=== PATIENT | male | born 1945 | race Caucasian/White ===

== ENCOUNTER 2017-03-31 08:23 | Emergency (ER) | payer OTHER, BC ==
[2017-03-31 08:29] VITALS: BP 143/78; PULSE 73; TEMP 98.3; BMI 29.8
--- NOTE | 2017-03-31 08:43 | PDOC ---
Suture Removal/Wound Check HPI - History of Present Illness Chief Complaint: Suture/Staple Removal (other) Stated Complaint: suture removal Time Seen by Provider: 03/31/17 08:32 History Source: Yes: Patient Exam Limitations: Yes: No Limitations Treated at: Other ED Date of Last ED visit: 03/22/17 - Previous ED Treatment Type of procedure performed on last visit: Yes: Laceration Repair Tetanus Immunization: Yes: Other comment (he is not sure - he will ask his PMD) Antibiotics Prescribed: No - Onset of Previous Treatment Date of Occurence: 03/22/17 Past History - Past Medical History Allergies/Adverse Reactions: Allergies Allergy/AdvReac Type Severity Reaction Status Date / Time No Known Allergies Allergy Verified 03/31/17 08:24 Home Medications: Ambulatory Orders Nadolol 40 mg PO BID 10/28/12 Olmesartan/Hydrochlorothiazide [Benicar Hct 40-12.5 mg Tablet] 1 each PO DAILY 10/28/12 Simvastatin [Zocor -] 40 mg PO HS 10/28/12 Divalproex [Depakote -] 500 mg PO BID 06/07/13 Cholecalciferol (Vitamin D3) [Vitamin D3] 400 unit PO BID 09/23/13 Ferrous Sulfate [Feosol] 325 mg PO BID 09/23/13 Docusate Sodium [Colace -] 100 mg PO TID #90 capsule 09/25/13 Oxycodone HCl/Acetaminophen [Percocet 5-325 mg Tablet] 1 tab PO Q4H PRN #20 tablet 09/25/13 Apixaban [Eliquis -] 5 mg PO BID #0 tablet 10/10/13 Pantoprazole Sodium [Protonix -] 40 mg PO DAILY #0 tablet.ec 10/10/13 Zolpidem Tartrate [Ambien] 5 mg PO HS #0 tablet 10/10/13 Anemia: No Asthma: No Cancer: No Cardiac Disorders: Yes CVA: No COPD: No CHF: No DVT: No Dementia: No Diabetes: No GI Disorders: Yes (DIVERTICULOSIS,ABDOMINAL PAIN) Disorders: No HTN: Yes Hypercholesterolemia: Yes Liver Disease: No Seizures: No Thyroid Disease: No - Surgical History Abdominal Surgery: Yes (BILATERAL INGUINAL HERNIA) Appendectomy: No Cardiac Surgery: Yes (CARDIAC STENTS X4) Cholecystectomy: No GI Surgery: Yes (DOUBLE HERNIA REPAIR SEPTEMBER 2013) Lung Surgery: No Neurologic Surgery: No Orthopedic Surgery: No - Suicide/Smoking/Psychosocial Hx Smoking Status: No Smoking History: Never smoked Have you smoked in the past 12 months: No Number of Cigarettes Smoked Daily: 0 Hx Alcohol Use: No Drug/Substance Use Hx: No Substance Use Type: None Hx Substance Use Treatment: No Suture Removal/Wound Check PE - Physical Exam Laceration/Wound Check Symptoms: reports: Pain Current Severity Level: None Pain Localization: None Location of Laceration/Wound: bilateral: Head *Review of Systems - Review of Systems Constitutional: No: Fever, Loss of Appetite, Malaise HEENTM: No: Blurred Vision, Double Vision Medical Decision Making - Medical Decision Making 03/31/17 08:49 wounds healing well 18 sutures removed over 2 lacs on his posterior scalp no signs of infection pt unclear if he got a tetanus shot at [facility] or with PMD - recommended tetenus but he prefers to fu with his PMD to verify if he has had it yet *DC/Admit/Observation/Transfer Diagnosis at time of Disposition: Visit for suture removal - Discharge Dispostion Disposition: HOME Condition at time of disposition: Improved Admit: No - Referrals Referrals: Jd Ruiz MD [Staff Physician] - - Patient Instructions Printed Discharge Instructions: DI for Suture Removal Additional Instructions: Wear a hat and use sunscreen on your wound. WAsh gently with soap and water. Follow up [facility] Dr. Ruiz to see if you have your tetanus in the past 10 years , if not, have it updated. Print Language: [place] - Post Discharge Activity
== END 2017-03-31 08:50 | disposition home or self-care (01) ==
LOC: FER 08:23
DX: Z48.02 Encounter for removal of sutures (principal)
CPT/HCPCS: 99281-25

== ENCOUNTER 2018-02-04 11:58 | Inpatient (IN) | payer OTHER, BC ==
--- NOTE | 2018-02-04 15:55 | CON.CARD ---
Consult Consult Specialty:: Cardiology Referred by:: Jd Ruiz MD Reason for Consultation:: Recurrent PAF - History of Present Illness Chief Complaint: Pacemaker notification of PAF recurrence History of Present Illness: 72 yo male h/o CAD s/p PCI(stent), distolic dysfunction, persistent afib [id number] on Eliquis post RFA 07/05/2013, previous cardioversion 11/2017, sick sinus syndrome with syncope post Biotronik MRI conditional pacemaker 2017, HTN cardiomyopathy, mild ao root dilatation 3.9 cm, mild carotid atherosclerosis, lap umbilical hernia repair complicated by abd wall hematoma on Xarelto, home monitoring shows he has been in recurrent asymptomatic persisten atrial fibrillation since 12/22/2017, 81% RV paced, 12% A-Pced during pacer interrogation 01/29/2018 admitted to telemetry for antiarrhythmic therapy initiation. He denies chest pain, dyspnea, near or true syncope, palpitations, orthopnea, PND or LE edema, compliant with medications. - History Source History Provided By: Patient Limitations to Obtaining History: No Limitations - Past Medical History Cardio/Vascular: Yes: AFIB (paroxysmal, s/p ablation), CAD, HTN, Hyperlipdemia Gastrointestinal: Yes: Diverticulosis - Past Surgical History Past Surgical History: Yes: Hernia Repair, Stent - Alcohol/Substance Use Hx Alcohol Use: No - Smoking History Smoking history: Never smoked Have you smoked in the past 12 months: No Aproximately how many cigarettes per day: 0 Home Medications - Allergies Allergies/Adverse Reactions: Allergies Allergy/AdvReac Type Severity Reaction Status Date / Time No Known Allergies Allergy Verified 09/30/17 12:37 - Home Medications Home Medications: Ambulatory Orders Nadolol 40 mg PO DAILY 10/28/12 Olmesartan/Hydrochlorothiazide [Benicar Hct 40-12.5 mg Tablet] 1 each PO DAILY 10/28/12 Divalproex [Depakote -] 500 mg PO TID 06/07/13 Ferrous Sulfate [Feosol] 325 mg PO DAILY 09/23/13 Apixaban [Eliquis -] 5 mg PO BID #0 tablet 10/10/13 [place]-3S/Dha/Epa/Fish Oil [Fish Oil 1,200 mg Softgel] 1 cap PO DAILY 09/30/17 Selegiline HCl 5 mg PO BID 09/30/17 Simvastatin 40 mg PO HS 09/30/17 Ubidecarenone [Co Q-10] 200 mg PO DAILY 02/04/18 Family Disease History - Family Disease History Family History: Denies Review of Systems - Review of Systems Constitutional: reports: No Symptoms Eyes: reports: No Symptoms HENT: reports: No Symptoms Neck: reports: No Symptoms Cardiovascular: reports: No Symptoms Respiratory: reports: No Symptoms Gastrointestinal: reports: No Symptoms Genitourinary: reports: No Symptoms Musculoskeletal: reports: No Symptoms Integumentary: reports: No Symptoms Neurological: reports: No Symptoms Constitutional: Yes: No Distress, Calm, Thin Neck: Yes: Supple Respiratory: Yes: Regular, CTA Bilaterally Gastrointestinal: Yes: Normal Bowel Sounds, Soft Cardiovascular: Yes: Regular Rate and Rhythm JVD: No Carotid Bruit: No Heart Sounds: Yes: S1, S2 Murmur: Yes: Systolic Murmur, Grade 1 Edema: No - Other Data Afib v-paced @ 71 Prior Cardiac Procedures: Cardioversion, PTCA with Stent Problem List - Problems (1) Persistent atrial fibrillation Code(s): I48.1 - PERSISTENT ATRIAL FIBRILLATION (2) Pacemaker Code(s): Z95.0 - PRESENCE OF CARDIAC PACEMAKER (3) Sick sinus syndrome Code(s): I49.5 - SICK SINUS SYNDROME (4) Coronary artery disease Code(s): I25.10 - ATHSCL HEART DISEASE OF [place] CORONARY ARTERY W/O ANG PCTRS Qualifiers: Coronary Disease-Associated Artery/Lesion type: [place] artery [place] vs. transplanted heart: [place] heart Associated angina: without angina Qualified Code(s): I25.10 - Atherosclerotic heart disease of [place] coronary artery without angina pectoris (5) Stented coronary artery Code(s): Z95.5 - PRESENCE OF CORONARY ANGIOPLASTY IMPLANT AND GRAFT (6) Hyperlipidemia Code(s): E78.5 - HYPERLIPIDEMIA, UNSPECIFIED Qualifiers: Hyperlipidemia type: pure hypercholesterolemia Qualified Code(s): E78.00 - Pure hypercholesterolemia, unspecified; E78.0 - Pure hypercholesterolemia (7) Hypertensive cardiovascular disease Code(s): I11.9 - HYPERTENSIVE HEART DISEASE WITHOUT HEART FAILURE Qualifiers: Heart failure presence: without heart failure Qualified Code(s): I11.9 - Hypertensive heart disease without heart failure (8) Diastolic dysfunction without heart failure Code(s): I51.89 - OTHER ILL-DEFINED HEART DISEASES (9) Anticoagulant long-term use Code(s): Z79.01 - HAND PLUG SHAPER (CURRENT) USE OF ANTICOAGULANTS Assessment/Plan [facility] Myoview: August 26, 2017 No ischemia, LVEF 59% Echo: Mar 24, 2017 Normal LV size and fxn LVEF 69%, mild LAE 4.2 cm, mild ao root dilatation 3.8 cm 1. Recurrent asymptomatic persistent atrial fibrillation with h/o previous RFA and cardioversion, [id number] on Eliquis 2. CAD s/p PCI, angina pectoris 3. Diastolic dysfunction 4. Sick sinus syndrome with syncope s/p MRI conditional Biotronik device 5. Mild aortic root dilatation 3.9 cm 6. HTN/HCVD 7. Hyperlipidemiua P:1. Start sotalol 80 bid with check QTC next 2 days, monitor on telemetry, continue Eliquis 5 bid, Benicar 20 qd, zocor 40 qhs 2. Plan for DCCV Friday if remains in afib, JOSE-guidance not indicated in Eliquis compliance is assured. 3. Thank you for consultative opportunity
[2018-02-04] MEDS ORDERED: APIXABAN 5 MG TABLET PO ONE (16:53)
[2018-02-04] MEDS: SOTALOL HCL 80 MG TABLET (FP) PO SCH ×2 (17:53→21:18)
[2018-02-04] MEDS ORDERED: PT OWN MED DRAWER 7, Y5N ONE (20:31)
[2018-02-04 21:03] LABS: BASO % 0.5 % (0-2.0); HEMATOCRIT 33.7 % (35.4-49); HEMOGLOBIN 11.6 GM/dL (11.7-16.9); LYMPH % 29.5 % (8-40); MCH 30.7 pg (25.7-33.7); MCHC 34.4 g/dl (32.0-35.9); MEAN CELL VOLUME 89.1 fl (80-96); MEAN PLT VOLUME 7.2 fl (7.5-11.1); MONO % 11.6 % (3.8-10.2); NEUT % 55.4 % (42.8-82.8); PLATELET COUNT 140 K/MM3 (134-434); RBC 3.78 M/mm3 (4.00-5.60); RDW 16.1 % (11.9-15.9); WHITE BLOOD COUNT 6.9 K/mm3 (4.0-10.0)
[2018-02-04] MEDS: DIVALPROEX SODIUM 500 MG TABLET E.C. PO SCH (21:17)
[2018-02-04] MEDS: ATORVASTATIN CA 40 MG TABLET (FP) PO SCH (21:18)
[2018-02-04] MEDS: APIXABAN 5 MG TABLET PO SCH (21:18)
[2018-02-04 21:22] LABS: INR 1.22 (0.83-1.09); PROTHROMBIN TIME (PATIENT) 14.4 SEC (9.7-13.0)
[2018-02-04 21:25] LABS: ACTIVATED PTT 33.8 SECONDS (25.2-36.5)
[2018-02-04 22:43] LABS: ALBUMIN 3.5 g/dl (3.4-5.0); ALK PHOS 35 U/L (45-117); ANION GAP 7 MMOL/L (8-16); BILIRUBIN,TOTAL 0.5 mg/dL (0.2-1); BLOOD UREA NITROGEN 23 mg/dL (7-18); CALCIUM 8.5 mg/dL (8.5-10.1); CHLORIDE 99 mmol/L (98-107); CO2 29 mmol/L (21-32); CREATININE 1.2 mg/dL (0.55-1.3); GLUCOSE,RANDOM 108 mg/dL (74-106); MAGNESIUM 2.2 mg/dL (1.8-2.4); PHOSPHOROUS 3.3 mg/dL (2.5-4.9); POTASSIUM 4.2 mmol/L (3.5-5.1); SGOT/AST 13 U/L (15-37); SGPT/ALT 20 U/L (13-61); SODIUM 135 mmol/L (136-145); TOT PROT 6.1 g/dl (6.4-8.2)
[2018-02-05] MEDS: DIVALPROEX SODIUM 500 MG TABLET E.C. PO SCH ×3 (05:41→21:31)
[2018-02-05 06:59] LABS: BASO % 0.4 % (0-2.0); EOS % 2.9 % (0-4.5); HEMATOCRIT 32.6 % (35.4-49); HEMOGLOBIN 11.2 GM/dL (11.7-16.9); LYMPH % 30.6 % (8-40); MCH 30.3 pg (25.7-33.7); MCHC 34.2 g/dl (32.0-35.9); MEAN CELL VOLUME 88.8 fl (80-96); MEAN PLT VOLUME 7.1 fl (7.5-11.1); MONO % 13.3 % (3.8-10.2); NEUT % 52.8 % (42.8-82.8); PLATELET COUNT 113 K/MM3 (134-434); RBC 3.68 M/mm3 (4.00-5.60); RDW 15.5 % (11.9-15.9); WHITE BLOOD COUNT 5.6 K/mm3 (4.0-10.0)
[2018-02-05 07:27] LABS: ALBUMIN 3.3 g/dl (3.4-5.0); ALK PHOS 32 U/L (45-117); ANION GAP 7 MMOL/L (8-16); BILIRUBIN,TOTAL 0.6 mg/dL (0.2-1); BLOOD UREA NITROGEN 22 mg/dL (7-18); CALCIUM 8.4 mg/dL (8.5-10.1); CHLORIDE 101 mmol/L (98-107); CHOLESTEROL 83 mg/dL (50-200); CO2 28 mmol/L (21-32); CREATININE 1.1 mg/dL (0.55-1.3); GLUCOSE,RANDOM 88 mg/dL (74-106); HDL CHOLESTEROL 34 mg/dL (40-60); POTASSIUM 4.3 mmol/L (3.5-5.1); SGOT/AST 13 U/L (15-37); SGPT/ALT 17 U/L (13-61); SODIUM 136 mmol/L (136-145); TOT PROT 5.7 g/dl (6.4-8.2); TRIGLYCERIDES 85 mg/dL (0-150)
--- NOTE | 2018-02-05 08:21 | HP ---
Admitting History and Physical - Admission History of Present Illness: 72 yo male h/o CAD s/p PCI(stent), diastolic dysfunction, persistent afib [id number] on Eliquis post RFA 07/05/2013, previous cardioversion 11/2017, sick sinus syndrome with syncope post Biotronik MRI conditional pacemaker 2017, HTN cardiomyopathy, mild ao root dilatation 3.9 cm, mild carotid atherosclerosis, lap umbilical hernia repair complicated by abd wall hematoma on Xarelto, home monitoring shows he has been in recurrent asymptomatic persisten atrial fibrillation since 12/22/2017, 81% RV paced, 12% A-Pced during pacer interrogation 01/29/2018 admitted to telemetry for antiarrhythmic therapy initiation. He denies chest pain, dyspnea, near or true syncope, palpitations, orthopnea, PND or LE edema, compliant with medications. - Past Medical History SHOP ASSISTANT: Yes: Parkinson's Cardiovascular: Yes: AFIB (paroxysmal, s/p ablation), CAD, HTN, Hyperlipdemia Gastrointestinal: Yes: Diverticulosis - Past Surgical History Past Surgical History: Yes: Hernia Repair, Stent - Smoking History Smoking history: Never smoked Have you smoked in the past 12 months: No Aproximately how many cigarettes per day: 0 - Alcohol/Substance Use Hx Alcohol Use: No Home Medications - Allergies Allergies/Adverse Reactions: Allergies Allergy/AdvReac Type Severity Reaction Status Date / Time No Known Allergies Allergy Verified 09/30/17 12:37 - Home Medications Home Medications: Ambulatory Orders Nadolol 40 mg PO DAILY 10/28/12 Olmesartan/Hydrochlorothiazide [Benicar Hct 40-12.5 mg Tablet] 1 each PO DAILY 10/28/12 Divalproex [Depakote -] 500 mg PO TID 06/07/13 Ferrous Sulfate [Feosol] 325 mg PO DAILY 09/23/13 Apixaban [Eliquis -] 5 mg PO BID #0 tablet 10/10/13 [place]-3S/Dha/Epa/Fish Oil [Fish Oil 1,200 mg Softgel] 1 cap PO DAILY 09/30/17 Selegiline HCl 5 mg PO BID 09/30/17 Simvastatin 40 mg PO HS 09/30/17 Ubidecarenone [Co Q-10] 200 mg PO DAILY 02/04/18 Review of Systems - Review of Systems Cardiovascular: reports: Palpitations. denies: Chest Pain, Shortness of Breath Respiratory: denies: SOB Gastrointestinal: reports: No Symptoms Genitourinary: reports: No Symptoms Physical Examination Vital Signs: Vital Signs Temperature 97.8 F 02/05/18 06:00 Pulse Rate 81 02/05/18 06:00 Respiratory Rate 18 02/05/18 06:00 Blood Pressure 133/67 02/05/18 06:00 O2 Sat by Pulse Oximetry (%) 98 02/04/18 17:45 Cardiovascular: Yes: Pulse Irregular, S1, S2 Respiratory: Yes: Regular, CTA Bilaterally Gastrointestinal: Yes: Normal Bowel Sounds, Soft Edema: No Labs: CBC, BMP 02/05/18 06:00 02/05/18 06:00 Problem List - Problems (1) Persistent atrial fibrillation Assessment/Plan: -OBSERVE ON MEDS IF PERSISTENT THEN CARDIOVERSION IN AM ON [employer] TELE CARDIO ON BOARD Code(s): I48.1 - PERSISTENT ATRIAL FIBRILLATION (2) Coronary artery disease Assessment/Plan: -S/P SENTING -NO CP Code(s): I25.10 - ATHSCL HEART DISEASE OF [place] CORONARY ARTERY W/O ANG PCTRS Qualifiers: Coronary Disease-Associated Artery/Lesion type: [place] artery [place] vs. transplanted heart: [place] heart Associated angina: without angina Qualified Code(s): I25.10 - Atherosclerotic heart disease of [place] coronary artery without angina pectoris (3) Diastolic dysfunction without heart failure Assessment/Plan: -STABLE Code(s): I51.89 - OTHER ILL-DEFINED HEART DISEASES (4) Pacemaker Assessment/Plan: -EKG AND TELE Code(s): Z95.0 - PRESENCE OF CARDIAC PACEMAKER (5) Anemia, secondary Assessment/Plan: -ON IRON AT HOME -DUE FOR COLONOSCOPY--SEEN BY GI--WILL DO AFTER CARDIAC ISSUES RESOLVE -MONITOR Code(s): D64.9 - ANEMIA, UNSPECIFIED
[2018-02-05] MEDS: APIXABAN 5 MG TABLET PO SCH ×2 (09:39→21:31)
[2018-02-05] MEDS: SOTALOL HCL 80 MG TABLET (FP) PO SCH ×2 (09:39→21:31)
[2018-02-05] MEDS: VALSARTAN 80 MG TABLET (UD) PO SCH (09:39)
--- NOTE | 2018-02-05 10:01 | PN ---
Progress Note, Physician History of Present Illness: Persistent afib placed on sotalol, denies symptoms. - Current Medication List Current Medications: Active Medications Apixaban (Eliquis -) 5 mg PO BID [facility] Last Admin: 02/05/18 09:39 Dose: 5 mg Atorvastatin Calcium (Lipitor -) 40 mg PO HS [facility] Last Admin: 02/04/18 21:18 Dose: 40 mg Divalproex Sodium (Depakote -) 500 mg PO TID [facility] Last Admin: 02/05/18 05:41 Dose: 500 mg Non-Formulary Medication (Selegiline Hcl [Selegiline Hcl]) 5 mg PO BID [facility] Sotalol HCl (Betapace -) 80 mg PO BID [facility] Last Admin: 02/05/18 09:39 Dose: 80 mg Valsartan (Diovan -) 80 mg PO DAILY [facility] Last Admin: 02/05/18 09:39 Dose: 80 mg - Objective Vital Signs: Vital Signs Temperature 97.4 F L 02/05/18 09:42 Pulse Rate 69 02/05/18 09:42 Respiratory Rate 18 02/05/18 09:42 Blood Pressure 118/69 02/05/18 09:42 O2 Sat by Pulse Oximetry (%) 94 L 02/05/18 09:00 Constitutional: Yes: No Distress, Calm, Thin Neck: Yes: Supple Cardiovascular: Yes: Regular Rate and Rhythm Respiratory: Yes: Regular, CTA Bilaterally Gastrointestinal: Yes: Normal Bowel Sounds, Soft Edema: No Labs: CBC, BMP 02/05/18 06:00 02/05/18 06:00 INR, PTT INR 1.22 (0.83-1.09) H 02/04/18 20:45 - ....Imaging EKG: Report Reviewed (Afib v-paced, no torsades, Qtc 516 msec) Problem List - Problems (1) Persistent atrial fibrillation Code(s): I48.1 - PERSISTENT ATRIAL FIBRILLATION (2) Pacemaker Code(s): Z95.0 - PRESENCE OF CARDIAC PACEMAKER (3) Sick sinus syndrome Code(s): I49.5 - SICK SINUS SYNDROME (4) Coronary artery disease Code(s): I25.10 - ATHSCL HEART DISEASE OF [place] CORONARY ARTERY W/O ANG PCTRS Qualifiers: Coronary Disease-Associated Artery/Lesion type: [place] artery [place] vs. transplanted heart: [place] heart Associated angina: without angina Qualified Code(s): I25.10 - Atherosclerotic heart disease of [place] coronary artery without angina pectoris (5) Stented coronary artery Code(s): Z95.5 - PRESENCE OF CORONARY ANGIOPLASTY IMPLANT AND GRAFT (6) Hyperlipidemia Code(s): E78.5 - HYPERLIPIDEMIA, UNSPECIFIED Qualifiers: Hyperlipidemia type: pure hypercholesterolemia Qualified Code(s): E78.00 - Pure hypercholesterolemia, unspecified; E78.0 - Pure hypercholesterolemia (7) Hypertensive cardiovascular disease Code(s): I11.9 - HYPERTENSIVE HEART DISEASE WITHOUT HEART FAILURE Qualifiers: Heart failure presence: without heart failure Qualified Code(s): I11.9 - Hypertensive heart disease without heart failure (8) Diastolic dysfunction without heart failure Code(s): I51.89 - OTHER ILL-DEFINED HEART DISEASES (9) Anticoagulant long-term use Code(s): Z79.01 - PEDODONTIST (CURRENT) USE OF ANTICOAGULANTS Assessment/Plan [facility] Myoview: August 26, 2017 No ischemia, LVEF 59% Echo: Mar 24, 2017 Normal LV size and fxn LVEF 69%, mild LAE 4.2 cm, mild ao root dilatation 3.8 cm 1. Recurrent asymptomatic persistent atrial fibrillation with h/o previous RFA and cardioversion, [id number] on Eliquis 2. CAD s/p PCI, angina pectoris 3. Diastolic dysfunction 4. Sick sinus syndrome with syncope s/p MRI conditional Biotronik device 5. Mild aortic root dilatation 3.9 cm 6. HTN/HCVD 7. Hyperlipidemiua P:1. Continue sotalol 80 bid with check QTC, monitor on telemetry, continue Eliquis 5 bid, Diovan 80 qd, Lipitor 40 qhs 2. Interrogate pacemaker as outpatient, if persists in afib will plan for DCCV, JOSE-guidance not indicated as Eliquis compliance is assured.
--- NOTE | 2018-02-05 12:17 | EKG ---
Test Reason : Blood Pressure : / mmHG Vent. Rate : 069 BPM Atrial Rate : 340 BPM P-R Int : 000 ms QRS Dur : 190 ms QT Int : 464 ms P-R-T Axes : 000 -64 071 degrees QTc Int : 497 ms Ventricular-paced rhythm ABNORMAL ECG WHEN COMPARED WITH ECG OF 01-OCT-2013 09:10, ELECTRONIC VENTRICULAR PACEMAKER HAS REPLACED SINUS RHYTHM Confirmed by MISHEL ALBA MD ([id number]) on 02/05/2018 12:17:39 PM Referred By: [facility] Confirmed By:MISHEL ALBA MD
[2018-02-05] MEDS ORDERED: PT OWN MED DRAWER 7, Y5N ONE ×2 (13:08→21:22)
[2018-02-05] MEDS: ATORVASTATIN CA 40 MG TABLET (FP) PO SCH (21:31)
[2018-02-05] MEDS: SELEGILINE PO SCH (21:36)
[2018-02-06] MEDS ORDERED: PT OWN MED DRAWER 7, Y5N ONE ×2 (06:32→13:14)
[2018-02-06] MEDS: DIVALPROEX SODIUM 500 MG TABLET E.C. PO SCH ×2 (06:36→13:15)
--- NOTE | 2018-02-06 07:22 | EKG ---
Test Reason : Blood Pressure : / mmHG Vent. Rate : 069 BPM Atrial Rate : 070 BPM P-R Int : 000 ms QRS Dur : 194 ms QT Int : 482 ms P-R-T Axes : 000 -66 081 degrees QTc Int : 516 ms Ventricular-paced rhythm ABNORMAL ECG WHEN COMPARED WITH ECG OF 04-FEB-2018 16:48, NO SIGNIFICANT CHANGE WAS FOUND Confirmed by MISHEL ALBA MD ([id number]) on 02/05/2018 12:15:44 PM Referred By: Confirmed By:MISHEL ALBA MD
--- NOTE | 2018-02-06 07:31 | PN ---
Progress Note, Physician - Current Medication List Current Medications: Active Medications Apixaban (Eliquis -) 5 mg PO BID [facility] Last Admin: 02/05/18 21:31 Dose: 5 mg Atorvastatin Calcium (Lipitor -) 40 mg PO HS [facility] Last Admin: 02/05/18 21:31 Dose: 40 mg Divalproex Sodium (Depakote -) 500 mg PO TID [facility] Last Admin: 02/06/18 06:36 Dose: 500 mg Ptnt's Own Med ( (Selegiline Hcl 5 Mg)) 5 mg PO BID [facility] Last Admin: 02/05/18 21:36 Dose: 5 mg Sotalol HCl (Betapace -) 80 mg PO BID [facility] Last Admin: 02/05/18 21:31 Dose: 80 mg Valsartan (Diovan -) 80 mg PO DAILY [facility] Last Admin: 02/05/18 09:39 Dose: 80 mg - Objective Vital Signs: Vital Signs Temperature 97.1 F L 02/06/18 06:00 Pulse Rate 69 02/06/18 06:00 Respiratory Rate 17 02/06/18 06:00 Blood Pressure 100/65 02/06/18 06:00 O2 Sat by Pulse Oximetry (%) 95 02/05/18 20:24 Cardiovascular: Yes: S1, S2 Respiratory: Yes: Regular, CTA Bilaterally Gastrointestinal: Yes: Normal Bowel Sounds, Soft Labs: CBC, BMP 02/05/18 06:00 02/05/18 06:00 INR, PTT INR 1.22 (0.83-1.09) H 02/04/18 20:45 Problem List - Problems (1) Persistent atrial fibrillation Assessment/Plan: -OBSERVE ON MEDS IF PERSISTENT THEN CARDIOVERSION PER CARDIO ON [employer] TELE CARDIO ON BOARD Code(s): I48.1 - PERSISTENT ATRIAL FIBRILLATION (2) Coronary artery disease Assessment/Plan: -S/P SENTING -NO CP Code(s): I25.10 - ATHSCL HEART DISEASE OF [place] CORONARY ARTERY W/O ANG PCTRS Qualifiers: Coronary Disease-Associated Artery/Lesion type: [place] artery [place] vs. transplanted heart: [place] heart Associated angina: without angina Qualified Code(s): I25.10 - Atherosclerotic heart disease of [place] coronary artery without angina pectoris (3) Diastolic dysfunction without heart failure Assessment/Plan: -STABLE Code(s): I51.89 - OTHER ILL-DEFINED HEART DISEASES (4) Pacemaker Assessment/Plan: -EKG AND TELE -INTERROGATION OUTPATIENT Code(s): Z95.0 - PRESENCE OF CARDIAC PACEMAKER (5) Anemia, secondary Assessment/Plan: -ON IRON AT HOME -DUE FOR COLONOSCOPY--SEEN BY GI--WILL DO AFTER CARDIAC ISSUES RESOLVE -MONITOR Laboratory Tests 02/05/18 02/05/18 06:00 06:00 Hgb 11.2 L Ferritin 665.9 H SERUM IRON PENDING Code(s): D64.9 - ANEMIA, UNSPECIFIED
[2018-02-06] MEDS: APIXABAN 5 MG TABLET PO SCH (10:13)
[2018-02-06] MEDS: SELEGILINE PO SCH (10:13)
[2018-02-06] MEDS: SOTALOL HCL 80 MG TABLET (FP) PO SCH (10:13)
[2018-02-06] MEDS: VALSARTAN 80 MG TABLET (UD) PO SCH (10:13)
[2018-02-06 10:41] VITALS: TEMP 97.7
--- NOTE | 2018-02-06 11:06 | CONSULT ---
Consultation: REQUESTING PROVIDER: Jasmyne CONSULT REQUEST: We have been asked to medically evaluate this patient for pulmonology evaluation for JOSEPH. HISTORY OF PRESENT ILLNESS: 72 yo male with PMH CAD s/p stent, Diastolic dysfunction, persistent A-fib (s/p ablation 2013, cardioversion 11/2017), admitted for antiarrhythmic therapy vs cardioversion following abnormal pacemaker interrogation. Pt states that he has not had any symptoms at all and has tolerated hard manual work without any chest pain, palpitations, SOB, JOSEPH, lightheadedness or dizziness. He states that he follows up yearly for post 12/23 check-ups. His most recent PFTs were in december and were normal as per the patient. REVIEW OF SYSTEMS: CONSTITUTIONAL: Absent: fever, chills, diaphoresis, generalized weakness, malaise, loss of appetite, weight change HEENT: Absent: rhinorrhea, nasal congestion, throat pain, throat swelling, difficulty swallowing, mouth swelling, ear pain, eye pain, visual changes CARDIOVASCULAR: Absent: chest pain, syncope, palpitations, irregular heart rate, lightheadedness , peripheral edema RESPIRATORY: Absent: cough, shortness of breath, dyspnea with exertion, orthopnea, wheezing, stridor, hemoptysis GASTROINTESTINAL: Absent: abdominal pain, abdominal distension, nausea, vomiting, diarrhea, constipation, melena, hematochezia GENITOURINARY: Absent: dysuria, frequency, urgency, hesitancy, hematuria, flank pain, genital pain MUSCULOSKELETAL: Absent: myalgia, arthralgia, joint swelling, back pain, neck pain SKIN: Absent: rash, itching, pallor HEMATOLOGIC/IMMUNOLOGIC: Absent: easy bleeding, easy bruising, lymphadenopathy, frequent infections ENDOCRINE: Absent: unexplained weight gain, unexplained weight loss, heat intolerance, cold intolerance NEUROLOGIC: Absent: headache, focal weakness or paresthesias, dizziness, unsteady gait, seizure, mental status changes, bladder or bowel incontinence PSYCHIATRIC: Absent: anxiety, depression, suicidal or homicidal ideation, hallucinations. PHYSICAL EXAMINATION Vital Signs - 24 hr 02/05/18 02/05/18 02/05/18 13:21 18:00 20:24 Temperature 97.9 F 97.5 F L Pulse Rate 69 69 Respiratory 16 18 Rate Blood Pressure 117/61 98/58 L O2 Sat by Pulse 95 Oximetry (%) 02/05/18 02/06/18 02/06/18 20:30 02:00 06:00 Temperature 97.4 F L 97.0 F L 97.1 F L Pulse Rate 70 69 69 Respiratory 18 18 17 Rate Blood Pressure 117/67 108/62 100/65 O2 Sat by Pulse Oximetry (%) 02/06/18 10:36 Temperature 97.7 F Pulse Rate 69 Respiratory 18 Rate Blood Pressure 116/75 O2 Sat by Pulse 97 Oximetry (%) GENERAL: Awake, alert, and fully oriented, in no acute distress. EYES: PERRL, EOMI, no scleral icterus EARS, NOSE, THROAT: oropharynx clear without exudates. Moist mucous membranes. NECK: supple without lymphadenopathy or JVD LUNGS: CTA b/l, no wheezes or rhonchi HEART: Irregularly irregular, regular rate, no murmurs noted ABDOMEN: Soft, nontender, normoactive bowel sounds, EXTREMITIES: 2+ pulses, warm, well-perfused. No calf tenderness. No peripheral edema. Active Medications Generic Name Dose Route Start Last Admin Trade Name Freq PRN Reason Stop Dose Admin Apixaban 5 mg 02/04/18 22:00 02/06/18 10:13 Eliquis - PO 5 mg BID GENNA Administration Atorvastatin Calcium 40 mg 02/04/18 22:00 02/05/18 21:31 Lipitor - PO 40 mg HS GENNA Administration Divalproex Sodium 500 mg 02/04/18 22:00 02/06/18 06:36 Depakote - PO 500 mg TID GENNA Administration Ptnt's Own Med ( 5 mg 02/05/18 22:00 02/06/18 10:13 Selegiline Hcl 5 Mg) PO 5 mg BID GENNA Administration Sotalol HCl 80 mg 02/04/18 15:48 02/06/18 10:13 Betapace - PO 80 mg BID GENNA Administration Valsartan 80 mg 02/05/18 10:00 02/06/18 10:13 Diovan - PO 80 mg DAILY GENNA Administration ASSESSMENT/PLAN: 72 yo male with PMH CAD s/p stent, Diastolic dysfunction, persistent A-fib (s/p ablation 2013, cardioversion 11/2017), admitted for antiarrhythmic therapy vs cardioversion following abnormal pacemaker interrogation. A-fib -Cardiology consult appreciated -Pt likely for Cardioversion today -Ventricular paced rythm on ECG -currently rate controlled with Sotalol 80 mg BID 12/23 worker -Recent PFTs normal in December this year -Continue outpatient follow up with yearly checkups and PFTs DIVINA -Avoid nephrotoxic drugs Anemia -Stable -possibly secondary to chronic inflammation -Iron Studies Pending -B12 noted Prophylaxis -Eliquis 5 mg PO BID FEN -Fluids: none -Electrolytes: monitor and replete as necessary -Nutrition: NPO for possible cardioversion Dispo: We will continue to follow the patient. Thank you for this consultative opportunity. Visit type - Emergency Visit Emergency Visit: Yes ED Registration Date: 02/04/18 Care time: The patient presented to the Emergency Department on the above date and was hospitalized for further evaluation of their emergent condition. - New Patient This patient is new to me today: Yes Date on this admission: 02/06/18 - Critical Care Critical Care patient: No
--- NOTE | 2018-02-06 11:21 | PN ---
Progress Note, Physician History of Present Illness: Persistent afib placed on sotalol, denies symptoms. - Current Medication List Current Medications: Active Medications Apixaban (Eliquis -) 5 mg PO BID [facility] Last Admin: 02/06/18 10:13 Dose: 5 mg Atorvastatin Calcium (Lipitor -) 40 mg PO HS [facility] Last Admin: 02/05/18 21:31 Dose: 40 mg Divalproex Sodium (Depakote -) 500 mg PO TID [facility] Last Admin: 02/06/18 06:36 Dose: 500 mg Ptnt's Own Med ( (Selegiline Hcl 5 Mg)) 5 mg PO BID [facility] Last Admin: 02/06/18 10:13 Dose: 5 mg Sotalol HCl (Betapace -) 80 mg PO BID [facility] Last Admin: 02/06/18 10:13 Dose: 80 mg Valsartan (Diovan -) 80 mg PO DAILY [facility] Last Admin: 02/06/18 10:13 Dose: 80 mg - Objective Vital Signs: Vital Signs Temperature 97.7 F 02/06/18 10:36 Pulse Rate 69 02/06/18 10:36 Respiratory Rate 18 02/06/18 10:36 Blood Pressure 116/75 02/06/18 10:36 O2 Sat by Pulse Oximetry (%) 97 02/06/18 10:36 Constitutional: Yes: No Distress, Calm, Thin Neck: Yes: Supple Cardiovascular: Yes: Regular Rate and Rhythm Respiratory: Yes: Regular, CTA Bilaterally Gastrointestinal: Yes: Soft, Hypoactive Bowel Sounds Edema: No Labs: CBC, BMP 02/05/18 06:00 02/05/18 06:00 INR, PTT INR 1.22 (0.83-1.09) H 02/04/18 20:45 - ....Imaging EKG: Report Reviewed (Afib v-paced @ 69) Problem List - Problems (1) Persistent atrial fibrillation Code(s): I48.1 - PERSISTENT ATRIAL FIBRILLATION (2) Pacemaker Code(s): Z95.0 - PRESENCE OF CARDIAC PACEMAKER (3) Sick sinus syndrome Code(s): I49.5 - SICK SINUS SYNDROME (4) Coronary artery disease Code(s): I25.10 - ATHSCL HEART DISEASE OF [place] CORONARY ARTERY W/O ANG PCTRS Qualifiers: Coronary Disease-Associated Artery/Lesion type: [place] artery [place] vs. transplanted heart: [place] heart Associated angina: without angina Qualified Code(s): I25.10 - Atherosclerotic heart disease of [place] coronary artery without angina pectoris (5) Stented coronary artery Code(s): Z95.5 - PRESENCE OF CORONARY ANGIOPLASTY IMPLANT AND GRAFT (6) Hyperlipidemia Code(s): E78.5 - HYPERLIPIDEMIA, UNSPECIFIED Qualifiers: Hyperlipidemia type: pure hypercholesterolemia Qualified Code(s): E78.00 - Pure hypercholesterolemia, unspecified; E78.0 - Pure hypercholesterolemia (7) Hypertensive cardiovascular disease Code(s): I11.9 - HYPERTENSIVE HEART DISEASE WITHOUT HEART FAILURE Qualifiers: Heart failure presence: without heart failure Qualified Code(s): I11.9 - Hypertensive heart disease without heart failure (8) Diastolic dysfunction without heart failure Code(s): I51.89 - OTHER ILL-DEFINED HEART DISEASES (9) Anticoagulant long-term use Code(s): Z79.01 - [facility] (CURRENT) USE OF ANTICOAGULANTS Assessment/Plan Lexiscan Myoview: August 26, 2017 No ischemia, LVEF 59% Echo: Mar 24, 2017 Normal LV size and fxn LVEF 69%, mild LAE 4.2 cm, mild ao root dilatation 3.8 cm 1. Recurrent asymptomatic persistent atrial fibrillation with h/o previous RFA and cardioversion, [id number] on Eliquis 2. CAD s/p PCI, angina pectoris 3. Diastolic dysfunction 4. Sick sinus syndrome with syncope s/p MRI conditional Biotronik device 5. Mild aortic root dilatation 3.9 cm 6. HTN/HCVD 7. Hyperlipidemiua P:1. Continue sotalol 80 bid with check QTC, monitor on telemetry, continue Eliquis 5 bid, Diovan 80 qd, Lipitor 40 qhs 2. Plan for DCCV today, JOSE-guidance not indicated as Eliquis compliance is assured.
[2018-02-06] MEDS ORDERED: PANTOPRAZOLE SODIUM 40 MG VIAL IVPUSH SCH (12:00)
[2018-02-06] MEDS ORDERED: CLOTRIMAZOLE 10 MG TROCHE (FP) PO SCH (14:00)
--- NOTE | 2018-02-06 14:29 | PN ---
Progress Note (short form) - Note Progress Note: Procedure Note Procedure: DC Cardioversion Diagnosis: Persistent afib on antiarrhythmic agent, sss s/p PPM, chronic a/c Procedure: After informed consent obtained, deep sedation with propofol administered by anesthesia, underwent synchronized cardioversion with 120 J with re-establishment of PAF->sinus rhythm. Recheck 12 lead ECG for confirmation. JOSE-guidance not warranted due to confirmed compliance with Eliquis. Complications: None Problem List - Problems (1) Persistent atrial fibrillation Code(s): I48.1 - PERSISTENT ATRIAL FIBRILLATION (2) Pacemaker Code(s): Z95.0 - PRESENCE OF CARDIAC PACEMAKER (3) Sick sinus syndrome Code(s): I49.5 - SICK SINUS SYNDROME (4) Coronary artery disease Code(s): I25.10 - ATHSCL HEART DISEASE OF [place] CORONARY ARTERY W/O ANG PCTRS Qualifiers: Coronary Disease-Associated Artery/Lesion type: [place] artery [place] vs. transplanted heart: [place] heart Associated angina: without angina Qualified Code(s): I25.10 - Atherosclerotic heart disease of [place] coronary artery without angina pectoris (5) Stented coronary artery Code(s): Z95.5 - PRESENCE OF CORONARY ANGIOPLASTY IMPLANT AND GRAFT (6) Hyperlipidemia Code(s): E78.5 - HYPERLIPIDEMIA, UNSPECIFIED Qualifiers: Hyperlipidemia type: pure hypercholesterolemia Qualified Code(s): E78.00 - Pure hypercholesterolemia, unspecified; E78.0 - Pure hypercholesterolemia (7) Hypertensive cardiovascular disease Code(s): I11.9 - HYPERTENSIVE HEART DISEASE WITHOUT HEART FAILURE Qualifiers: Heart failure presence: without heart failure Qualified Code(s): I11.9 - Hypertensive heart disease without heart failure (8) Diastolic dysfunction without heart failure Code(s): I51.89 - OTHER ILL-DEFINED HEART DISEASES (9) Anticoagulant long-term use Code(s): Z79.01 - [facility] (CURRENT) USE OF ANTICOAGULANTS
--- NOTE | 2018-02-06 14:30 | PN ---
Teaching Attending Note Name of Resident: Chris Bermeo ATTENDING PHYSICIAN STATEMENT I saw and evaluated the patient. I reviewed the resident's note and discussed the case with the resident. I agree with the resident's findings and plan as documented. PULMONARY SUBJECTIVE: OBJECTIVE: ASSESSMENT AND PLAN:
[2018-02-06 15:40] VITALS: BP 128/73; PULSE 70
[2018-02-07 06:11] LABS: SERUM IRON SATURATION 41 % (15-55); TOTAL IRON BINDING CAPACITY 261 ug/dL (250-450); UIBC 153 ug/dL (111-343)
[2018-02-07 06:11] LABS: SERUM IRON SATURATION 24 % (15-55); TOTAL IRON BINDING CAPACITY 288 ug/dL (250-450); UIBC 219 ug/dL (111-343)
--- NOTE | 2018-02-07 15:01 | EKG ---
Test Reason : Blood Pressure : / mmHG Vent. Rate : 069 BPM Atrial Rate : 326 BPM P-R Int : 000 ms QRS Dur : 194 ms QT Int : 488 ms P-R-T Axes : 000 -66 066 degrees QTc Int : 522 ms Ventricular-paced rhythm ABNORMAL ECG WHEN COMPARED WITH ECG OF 05-FEB-2018 08:57, NO SIGNIFICANT CHANGE WAS FOUND Confirmed by MD Childers Edward ([id number]) on 02/07/2018 3:01:26 PM Referred By: [facility] Confirmed By:Navin Childers MD
== END 2018-02-06 18:40 | disposition home or self-care (01) | DRG 310 ==
LOC: J4S 15:03
PROVIDERS: ADMIT Family Medicine; ATTEND Family Medicine
PROC: 5A2204Z Restoration of Cardiac Rhythm, Single (ICD-10-PCS; principal; 2018-02-06 14:15)
DX: I48.1 Persistent atrial fibrillation (principal); I25.10 Atherosclerotic heart disease of native coronary artery without angina pectoris; Z79.01 Long term (current) use of anticoagulants; I42.8 Other cardiomyopathies; E78.5 Hyperlipidemia, unspecified; I11.9 Hypertensive heart disease without heart failure; Z95.5 Presence of coronary angioplasty implant and graft; D64.9 Anemia, unspecified; Z95.0 Presence of cardiac pacemaker
CPT/HCPCS: 36415; 80053; 80061; 82550; 82607; 82728; 83036; 83540; 83550; 83721; 83735; 84100; 84484; 85025; 85610; 85730; 93005; 93010

== ENCOUNTER 2020-03-22 05:43 | Inpatient (IN) | payer OTHER, BC ==
[2020-03-20 16:57] VITALS: BMI 28.5
[2020-03-22] MEDS ORDERED: PROPOFOL 20 ML ONE (12:20)
[2020-03-22] MEDS ORDERED: ceFAZolin SODIUM 1 GM VIAL IVPB ONE (12:39)
[2020-03-22] MEDS ORDERED: ceFAZolin SODIUM 1 GM VIAL ONE ×2 (12:41→20:39)
[2020-03-22] MEDS ORDERED: DEXAMETHASONE SOD PHOSPHATE 4 MG/1 ML VIAL ONE (12:48)
[2020-03-22] MEDS ORDERED: SODIUM CHLORIDE 1,000 ML IV SCH (13:30)
[2020-03-22] MEDS ORDERED: PROMETHAZINE HCL 25 MG/1 ML VIAL IVPB PRN (13:30)
[2020-03-22] MEDS ORDERED: ONDANSETRON 4 MG/2 ML VIAL IVPUSH PRN (13:30)
[2020-03-22 16:44] LABS: POTASSIUM 4.5 mmol/L (3.5-5.1)
[2020-03-22 16:46] LABS: CALCIUM 8.6 mg/dL (8.5-10.1)
[2020-03-22 16:47] LABS: ALBUMIN 3.5 g/dl (3.4-5.0); BLOOD UREA NITROGEN 20.4 mg/dL (7-18)
[2020-03-22 16:50] LABS: CREATININE 1.2 mg/dL (0.55-1.3)
[2020-03-22 16:52] LABS: BILIRUBIN,TOTAL 0.5 mg/dL (0.2-1); TOT PROT 6.1 g/dl (6.4-8.2)
[2020-03-22] MEDS ORDERED: oxyCODONE HCL 5 MG TABLET PO PRN (17:19)
[2020-03-22] MEDS ORDERED: ACETAMINOPHEN 325 MG TABLET (FP) PO PRN (17:19)
[2020-03-22] MEDS ORDERED: oxyCODONE HCL 5 MG TABLET ONE (17:20)
[2020-03-22] MEDS ORDERED: HYDROmorphone HCl 2 MG/ML VIAL IVPB PRN (18:55)
[2020-03-22] MEDS ORDERED: DEXTROSE 5%-WATER - 50 ML IVPB ONE (20:39)
[2020-03-22] MEDS: oxyCODONE HCL 5 MG TABLET PO PRN (21:12)
[2020-03-22] MEDS: CEFAZOLIN 1 GM in DEXTROSE 5%-WATER - 50 ML IVPB SCH (21:14)
[2020-03-22] MEDS: DIVALPROEX SODIUM 500 MG TABLET E.C. PO SCH (22:50)
[2020-03-22] MEDS: OXYBUTYNIN CHLORIDE 5 MG TABLET PO SCH (22:50)
[2020-03-22] MEDS: PHENAZOPYRIDINE HCL 100 MG TABLET (FP) PO SCH (22:50)
[2020-03-22] MEDS: SOTALOL HCL 80 MG TABLET (FP) PO SCH (22:50)
[2020-03-23] MEDS: SIMETHICONE 80 MG TAB.CHEW (FP) PO PRN ×4 (01:01→21:29)
[2020-03-23] MEDS: SELEGILINE HCL 5 MG CAPSULE PO SCH ×3 (01:16→21:20)
[2020-03-23] MEDS ORDERED: DEXTROSE 5%-WATER - 50 ML IVPB ONE ×2 (03:54→09:10)
[2020-03-23] MEDS ORDERED: ceFAZolin SODIUM 1 GM VIAL ONE ×2 (03:54→09:10)
[2020-03-23] MEDS: CEFAZOLIN 1 GM in DEXTROSE 5%-WATER - 50 ML IVPB SCH ×2 (03:58→12:50)
[2020-03-23] MEDS: oxyCODONE HCL 5 MG TABLET PO PRN ×3 (03:58→14:11)
[2020-03-23] MEDS: OXYBUTYNIN CHLORIDE 5 MG TABLET PO SCH ×4 (05:57→21:20)
[2020-03-23] MEDS: HYDROCHLOROTHIAZIDE 12.5 MG CAPSULE (FP) PO SCH (09:15)
[2020-03-23] MEDS: TAMSULOSIN HCL 0.4 MG CAP PO SCH (09:15)
[2020-03-23] MEDS: LOSARTAN POTASSIUM 50 MG TABLET PO SCH (09:15)
[2020-03-23] MEDS: SOTALOL HCL 80 MG TABLET (FP) PO SCH ×2 (09:17→21:19)
[2020-03-23] MEDS: PHENAZOPYRIDINE HCL 100 MG TABLET (FP) PO SCH ×2 (09:17→21:20)
[2020-03-23] MEDS: DIVALPROEX SODIUM 500 MG TABLET E.C. PO SCH (21:20)
[2020-03-24] MEDS: OXYBUTYNIN CHLORIDE 5 MG TABLET PO SCH ×3 (06:35→21:21)
[2020-03-24] MEDS: TAMSULOSIN HCL 0.4 MG CAP PO SCH (08:51)
[2020-03-24 09:38] LABS: HEMATOCRIT 34.1 % (35.4-49); HEMOGLOBIN 10.7 GM/dL (11.7-16.9); LYMPH % 3.1 % (8-40); MCH 29.9 pg (25.7-33.7); MCHC 31.5 g/dl (32.0-35.9); MEAN CELL VOLUME 94.9 fl (80-96); MONO % 9.2 % (3.8-10.2); NEUT % 87.7 % (42.8-82.8); PLATELET COUNT 364 K/MM3 (134-434)
[2020-03-24 09:53] LABS: POTASSIUM 4.8 mmol/L (3.5-5.1)
[2020-03-24] MEDS: HYDROCHLOROTHIAZIDE 12.5 MG CAPSULE (FP) PO SCH (09:56)
[2020-03-24] MEDS: LOSARTAN POTASSIUM 50 MG TABLET PO SCH (09:56)
[2020-03-24] MEDS: SELEGILINE HCL 5 MG CAPSULE PO SCH ×2 (09:56→21:21)
[2020-03-24] MEDS: PHENAZOPYRIDINE HCL 100 MG TABLET (FP) PO SCH ×2 (09:57→21:21)
[2020-03-24] MEDS: SOTALOL HCL 80 MG TABLET (FP) PO SCH ×2 (09:58→21:20)
[2020-03-24 10:00] LABS: CREATININE 3.2 mg/dL (0.55-1.3)
[2020-03-24 10:07] LABS: BLOOD UREA NITROGEN 46.2 mg/dL (7-18)
[2020-03-24 10:32] LABS: CALCIUM 6.8 mg/dL (8.5-10.1)
[2020-03-24 12:26] LABS: ANISOCYTOSIS 0; MACROCYTOSIS 0; PLATELET ESTIMATE NORMAL
[2020-03-24 13:52] LABS: WHITE BLOOD COUNT 35.3 K/mm3 (4.0-10.0)
[2020-03-24] MEDS ORDERED: PT OWN MED DRAWER 7, Y5N ONE (21:17)
[2020-03-24] MEDS: DIVALPROEX SODIUM 500 MG TABLET E.C. PO SCH (21:21)
[2020-03-25] MEDS ORDERED: cefTRIAXone SODIUM 1 GM VIAL ONE ×2 (00:11→09:28)
[2020-03-25] MEDS ORDERED: DEXTROSE 5%-WATER - 50 ML IVPB ONE ×3 (00:12→18:35)
[2020-03-25] MEDS: CEFTRIAXONE 1 GM in DEXTROSE 5%-WATER - 50 ML IVPB SCH ×2 (00:14→09:47)
[2020-03-25] MEDS: OXYBUTYNIN CHLORIDE 5 MG TABLET PO SCH ×3 (06:03→23:22)
[2020-03-25] MEDS ORDERED: PT OWN MED DRAWER 7, Y5N ONE ×2 (09:28→22:57)
[2020-03-25] MEDS: TAMSULOSIN HCL 0.4 MG CAP PO SCH (09:46)
[2020-03-25] MEDS: SELEGILINE HCL 5 MG CAPSULE PO SCH ×2 (09:46→23:25)
[2020-03-25] MEDS: SOTALOL HCL 80 MG TABLET (FP) PO SCH ×2 (09:46→23:25)
[2020-03-25] MEDS: HYDROCHLOROTHIAZIDE 12.5 MG CAPSULE (FP) PO SCH (09:46)
[2020-03-25] MEDS: LOSARTAN POTASSIUM 50 MG TABLET PO SCH (09:46)
[2020-03-25] MEDS: PHENAZOPYRIDINE HCL 100 MG TABLET (FP) PO SCH ×2 (09:55→23:25)
[2020-03-25 15:30] LABS: EOS % 0.3 % (0-4.5); HEMATOCRIT 23.5 % (35.4-49); HEMOGLOBIN 7.5 GM/dL (11.7-16.9); LYMPH % 4.1 % (8-40); MCH 29.3 pg (25.7-33.7); MCHC 31.8 g/dl (32.0-35.9); MEAN CELL VOLUME 92.2 fl (80-96); MEAN PLT VOLUME 6.6 fl (7.5-11.1); MONO % 9.8 % (3.8-10.2); NEUT % 85.8 % (42.8-82.8); PLATELET COUNT 238 K/MM3 (134-434); RBC 2.54 M/mm3 (4.00-5.60); RDW 18.7 % (11.9-15.9); WHITE BLOOD COUNT 16.7 K/mm3 (4.0-10.0)
[2020-03-25 15:45] LABS: POTASSIUM 3.8 mmol/L (3.5-5.1)
[2020-03-25 15:47] LABS: ALBUMIN 2.2 g/dl (3.4-5.0)
[2020-03-25 15:48] LABS: BLOOD UREA NITROGEN 48.8 mg/dL (7-18)
[2020-03-25 15:50] LABS: CREATININE 1.6 mg/dL (0.55-1.3)
[2020-03-25 15:52] LABS: BILIRUBIN,TOTAL 0.3 mg/dL (0.2-1); TOT PROT 4.3 g/dl (6.4-8.2)
[2020-03-25] MEDS ORDERED: PIPERACILLIN/TAZOBACTAM 2.25 GM VIAL IVPB ONE (18:35)
[2020-03-25] MEDS: PIPERACILLIN/TAZOB 2.25 GM 2.25 GM in DEXTROSE 5%-WATER - 50 ML IVPB SCH (18:41)
[2020-03-25] MEDS: DIVALPROEX SODIUM 500 MG TABLET E.C. PO SCH (23:25)
[2020-03-25] MEDS: SODIUM CHLORIDE 1,000 ML IV SCH (23:31)
[2020-03-26] MEDS ORDERED: PIPERACILLIN/TAZOBACTAM 2.25 GM VIAL IVPB ONE ×3 (03:01→18:29)
[2020-03-26] MEDS ORDERED: DEXTROSE 5%-WATER - 50 ML IVPB ONE ×3 (03:01→18:29)
[2020-03-26] MEDS: PIPERACILLIN/TAZOB 2.25 GM 2.25 GM in DEXTROSE 5%-WATER - 50 ML IVPB SCH ×3 (03:09→18:42)
[2020-03-26] MEDS ORDERED: PT OWN MED DRAWER 7, Y5N ONE ×3 (06:40→21:57)
[2020-03-26] MEDS: OXYBUTYNIN CHLORIDE 5 MG TABLET PO SCH ×3 (06:51→21:59)
[2020-03-26] MEDS: HYDROCHLOROTHIAZIDE 12.5 MG CAPSULE (FP) PO SCH (10:28)
[2020-03-26] MEDS: TAMSULOSIN HCL 0.4 MG CAP PO SCH (10:28)
[2020-03-26] MEDS: PHENAZOPYRIDINE HCL 100 MG TABLET (FP) PO SCH ×2 (10:29→21:59)
[2020-03-26] MEDS: LOSARTAN POTASSIUM 50 MG TABLET PO SCH (10:29)
[2020-03-26] MEDS: SOTALOL HCL 80 MG TABLET (FP) PO SCH ×2 (10:29→21:58)
[2020-03-26] MEDS: SODIUM CHLORIDE 1,000 ML IV SCH ×3 (10:30→18:42)
[2020-03-26] MEDS: SELEGILINE HCL 5 MG CAPSULE PO SCH ×2 (10:30→21:58)
[2020-03-26 13:57] LABS: HEMATOCRIT 22.6 % (35.4-49); HEMOGLOBIN 7.3 GM/dL (11.7-16.9); MCH 29.7 pg (25.7-33.7); MCHC 32.3 g/dl (32.0-35.9); MEAN PLT VOLUME 6.4 fl (7.5-11.1); PLATELET COUNT 250 K/MM3 (134-434); RBC 2.45 M/mm3 (4.00-5.60); RDW 18.3 % (11.9-15.9); WHITE BLOOD COUNT 12.2 K/mm3 (4.0-10.0)
[2020-03-26 14:18] LABS: POTASSIUM 3.8 mmol/L (3.5-5.1)
[2020-03-26 14:20] LABS: CALCIUM 7.3 mg/dL (8.5-10.1)
[2020-03-26 14:21] LABS: ALBUMIN 2.4 g/dl (3.4-5.0); BLOOD UREA NITROGEN 37.1 mg/dL (7-18)
[2020-03-26 14:24] LABS: CREATININE 1.4 mg/dL (0.55-1.3)
[2020-03-26 14:25] LABS: BILIRUBIN,TOTAL 0.4 mg/dL (0.2-1); TOT PROT 4.7 g/dl (6.4-8.2)
[2020-03-26] MEDS: prednisoLONE ACETATE 1% OPHTH SUSP 5 ML BOTTLE OU SCH (14:30)
[2020-03-26] MEDS: DIVALPROEX SODIUM 500 MG TABLET E.C. PO SCH (21:58)
[2020-03-27] MEDS ORDERED: DEXTROSE 5%-WATER - 0 ML IVPB ONE (02:42)
[2020-03-27] MEDS ORDERED: PIPERACILLIN/TAZOBACTAM 2.25 GM VIAL IVPB ONE ×4 (02:42→17:22)
[2020-03-27] MEDS ORDERED: DEXTROSE 5%-WATER - 50 ML IVPB ONE ×3 (02:54→17:22)
[2020-03-27] MEDS: PIPERACILLIN/TAZOB 2.25 GM 2.25 GM in DEXTROSE 5%-WATER - 50 ML IVPB SCH ×3 (02:56→17:47)
[2020-03-27] MEDS: OXYBUTYNIN CHLORIDE 5 MG TABLET PO SCH ×3 (05:15→23:33)
[2020-03-27] MEDS ORDERED: PT OWN MED DRAWER 7, Y5N ONE ×3 (09:14→22:43)
[2020-03-27] MEDS: TAMSULOSIN HCL 0.4 MG CAP PO SCH (10:42)
[2020-03-27] MEDS: SELEGILINE HCL 5 MG CAPSULE PO SCH ×2 (10:42→23:33)
[2020-03-27] MEDS: LOSARTAN POTASSIUM 50 MG TABLET PO SCH (10:42)
[2020-03-27] MEDS: HYDROCHLOROTHIAZIDE 12.5 MG CAPSULE (FP) PO SCH (10:42)
[2020-03-27] MEDS: PHENAZOPYRIDINE HCL 100 MG TABLET (FP) PO SCH ×2 (10:43→23:33)
[2020-03-27] MEDS: SOTALOL HCL 80 MG TABLET (FP) PO SCH ×2 (10:44→23:33)
[2020-03-27] MEDS: prednisoLONE ACETATE 1% OPHTH SUSP 5 ML BOTTLE OU SCH (10:44)
[2020-03-27] MEDS: SODIUM CHLORIDE 1,000 ML IV SCH (13:23)
[2020-03-27] MEDS ORDERED: LACTATED RINGERS SOLUTION 1,000 ML/1,000 ML INFUS.BAG IV SCH (19:15)
[2020-03-27] MEDS: DIVALPROEX SODIUM 500 MG TABLET E.C. PO SCH (23:33)
[2020-03-28] MEDS ORDERED: DEXTROSE 5%-WATER - 50 ML IVPB ONE ×5 (01:58→20:58)
[2020-03-28] MEDS ORDERED: PIPERACILLIN/TAZOBACTAM 2.25 GM VIAL IVPB ONE ×5 (01:58→20:58)
[2020-03-28] MEDS: PIPERACILLIN/TAZOB 2.25 GM 2.25 GM in DEXTROSE 5%-WATER - 50 ML IVPB SCH ×3 (02:06→21:04)
[2020-03-28] MEDS: TAMSULOSIN HCL 0.4 MG CAP PO SCH (08:32)
[2020-03-28] MEDS ORDERED: PT OWN MED DRAWER 7, Y5N ONE ×2 (09:00→21:02)
[2020-03-28] MEDS: LOSARTAN POTASSIUM 50 MG TABLET PO SCH (09:30)
[2020-03-28] MEDS: SELEGILINE HCL 5 MG CAPSULE PO SCH ×2 (09:30→21:03)
[2020-03-28] MEDS: OXYBUTYNIN CHLORIDE 5 MG TABLET PO SCH ×2 (09:31→21:04)
[2020-03-28] MEDS: SOTALOL HCL 80 MG TABLET (FP) PO SCH ×2 (09:31→21:04)
[2020-03-28] MEDS: PHENAZOPYRIDINE HCL 100 MG TABLET (FP) PO SCH ×2 (09:31→21:03)
[2020-03-28 09:57] LABS: ALBUMIN 2.5 g/dl (3.4-5.0); CALCIUM 7.7 mg/dL (8.5-10.1)
[2020-03-28 10:01] LABS: CREATININE 1.2 mg/dL (0.55-1.3)
[2020-03-28] MEDS ORDERED: PHENYLEPHRINE HCL 10 MG/1 ML SINGLE DOSE VIAL ONE (15:45)
[2020-03-28] MEDS ORDERED: MIDAZOLAM HCL 2 MG/2 ML SINGLE DOSE VIAL ONE (15:45)
[2020-03-28] MEDS: ACETAMINOPHEN 1000 MG/100 ML VIAL (NON FORMULARY) IVPB ONE (17:15)
[2020-03-28] MEDS ORDERED: ACETAMINOPHEN INJECTION 100 ML IVPB ONE (17:17)
[2020-03-28] MEDS ORDERED: LACTATED RINGERS SOLUTION 1,000 ML/1,000 ML INFUS.BAG IV SCH (17:29)
[2020-03-28] MEDS ORDERED: ACETAMINOPHEN 325 MG TABLET (FP) PO PRN (17:29)
[2020-03-28] MEDS ORDERED: SIMETHICONE 80 MG TAB.CHEW (FP) PO PRN (17:29)
[2020-03-28] MEDS ORDERED: ONDANSETRON 4 MG/2 ML VIAL IVPUSH PRN (17:34)
[2020-03-28] MEDS ORDERED: LACTATED RINGERS SOLUTION 1,000 ML IV SCH (17:45)
[2020-03-28 19:18] LABS: BASO % 0.2 % (0-2.0); EOS % 0.2 % (0-4.5); HEMATOCRIT 30.7 % (35.4-49); HEMOGLOBIN 10.2 GM/dL (11.7-16.9); LYMPH % 6.5 % (8-40); MCH 30.5 pg (25.7-33.7); MCHC 33.2 g/dl (32.0-35.9); MEAN CELL VOLUME 91.7 fl (80-96); MEAN PLT VOLUME 5.9 fl (7.5-11.1); MONO % 15.9 % (3.8-10.2); NEUT % 77.2 % (42.8-82.8); PLATELET COUNT 264 K/MM3 (134-434); RBC 3.35 M/mm3 (4.00-5.60); RDW 16.6 % (11.9-15.9); WHITE BLOOD COUNT 12.7 K/mm3 (4.0-10.0)
[2020-03-28 19:41] LABS: POTASSIUM 4.1 mmol/L (3.5-5.1)
[2020-03-28 19:42] LABS: CALCIUM 7.1 mg/dL (8.5-10.1)
[2020-03-28 19:43] LABS: BLOOD UREA NITROGEN 25.8 mg/dL (7-18)
[2020-03-28 19:46] LABS: CREATININE 1.6 mg/dL (0.55-1.3)
[2020-03-28 20:34] LABS: ANISOCYTOSIS 1+; MACROCYTOSIS 1+; PLATELET ESTIMATE NORMAL
[2020-03-28] MEDS: DIVALPROEX SODIUM 500 MG TABLET E.C. PO SCH (21:03)
[2020-03-28] MEDS ORDERED: FUROSEMIDE 40 MG/4 ML INJECTABLE VIAL IVPUSH ONE (22:27)
[2020-03-28] MEDS: guaiFENesin 200 MG/10 ML 10 ML UNIT-DOSE CUPS PO PRN (23:04)
[2020-03-29] MEDS ORDERED: PIPERACILLIN/TAZOBACTAM 2.25 GM VIAL IVPB ONE ×3 (02:09→18:58)
[2020-03-29] MEDS ORDERED: DEXTROSE 5%-WATER - 50 ML IVPB ONE ×3 (02:09→18:59)
[2020-03-29] MEDS: PIPERACILLIN/TAZOB 2.25 GM 2.25 GM in DEXTROSE 5%-WATER - 50 ML IVPB SCH ×3 (02:57→19:18)
[2020-03-29] MEDS ORDERED: PT OWN MED DRAWER 7, Y5N ONE ×4 (05:07→21:03)
[2020-03-29] MEDS: OXYBUTYNIN CHLORIDE 5 MG TABLET PO SCH ×4 (05:17→21:46)
[2020-03-29] MEDS: prednisoLONE ACETATE 1% OPHTH SUSP 5 ML BOTTLE OU SCH ×2 (08:31→10:09)
[2020-03-29] MEDS: ACETAMINOPHEN 1000 MG/100 ML VIAL (NON FORMULARY) IVPB ONE (08:32)
[2020-03-29 09:10] LABS: BASO % 0.1 % (0-2.0); EOS % 0.6 % (0-4.5); HEMATOCRIT 26.8 % (35.4-49); HEMOGLOBIN 9.3 GM/dL (11.7-16.9); LYMPH % 6.3 % (8-40); MCH 31.4 pg (25.7-33.7); MCHC 34.5 g/dl (32.0-35.9); MEAN CELL VOLUME 91.1 fl (80-96); MEAN PLT VOLUME 6.2 fl (7.5-11.1); MONO % 13.1 % (3.8-10.2); NEUT % 79.9 % (42.8-82.8); PLATELET COUNT 249 K/MM3 (134-434); RBC 2.94 M/mm3 (4.00-5.60); RDW 16.8 % (11.9-15.9); WHITE BLOOD COUNT 9.9 K/mm3 (4.0-10.0)
[2020-03-29 09:52] LABS: POTASSIUM 3.9 mmol/L (3.5-5.1)
[2020-03-29] MEDS ORDERED: LOSARTAN POTASSIUM 50 MG TABLET PO SCH (10:00)
[2020-03-29] MEDS: TAMSULOSIN HCL 0.4 MG CAP PO SCH (10:08)
[2020-03-29] MEDS: SOTALOL HCL 80 MG TABLET (FP) PO SCH ×2 (10:09→21:46)
[2020-03-29] MEDS: PHENAZOPYRIDINE HCL 100 MG TABLET (FP) PO SCH ×2 (10:10→21:47)
[2020-03-29] MEDS: SELEGILINE HCL 5 MG CAPSULE PO SCH ×2 (10:11→21:47)
[2020-03-29 10:23] LABS: ALBUMIN 2.2 g/dl (3.4-5.0); BLOOD UREA NITROGEN 22.8 mg/dL (7-18); CALCIUM 7.2 mg/dL (8.5-10.1)
[2020-03-29 10:26] LABS: CREATININE 1.3 mg/dL (0.55-1.3)
[2020-03-29 10:27] LABS: TOT PROT 4.4 g/dl (6.4-8.2)
[2020-03-29 10:28] LABS: BILIRUBIN,TOTAL 0.7 mg/dL (0.2-1)
[2020-03-29] MEDS ORDERED: SENNOSIDES 8.6MG TABLET (FP) PO PRN (12:51)
[2020-03-29 12:55] LABS: ANISOCYTOSIS 0; MACROCYTOSIS 0; PLATELET ESTIMATE NORMAL; TARGET CELLS 1+
[2020-03-29] MEDS: IRON POLYSACCHARIDES 150 MG CAPSULE PO SCH (16:48)
[2020-03-29] MEDS: LOSARTAN POTASSIUM 50 MG TABLET PO SCH (16:48)
[2020-03-29] MEDS: DOCUSATE SODIUM 100 MG CAPSULE (FP) PO SCH (21:45)
[2020-03-29] MEDS: DIVALPROEX SODIUM 500 MG TABLET E.C. PO SCH (21:46)
[2020-03-29] MEDS: guaiFENesin 200 MG/10 ML 10 ML UNIT-DOSE CUPS PO PRN (23:43)
[2020-03-30] MEDS ORDERED: DEXTROSE 5%-WATER - 50 ML IVPB ONE ×3 (00:33→18:07)
[2020-03-30] MEDS ORDERED: PIPERACILLIN/TAZOBACTAM 2.25 GM VIAL IVPB ONE ×3 (00:33→18:06)
[2020-03-30] MEDS: PIPERACILLIN/TAZOB 2.25 GM 2.25 GM in DEXTROSE 5%-WATER - 50 ML IVPB SCH ×3 (01:18→18:09)
[2020-03-30] MEDS: OXYBUTYNIN CHLORIDE 5 MG TABLET PO SCH ×3 (05:56→21:19)
[2020-03-30] MEDS ORDERED: PT OWN MED DRAWER 7, Y5N ONE ×2 (09:48→21:11)
[2020-03-30] MEDS: PHENAZOPYRIDINE HCL 100 MG TABLET (FP) PO SCH ×2 (10:41→21:21)
[2020-03-30] MEDS: TAMSULOSIN HCL 0.4 MG CAP PO SCH (10:41)
[2020-03-30] MEDS: IRON POLYSACCHARIDES 150 MG CAPSULE PO SCH (10:41)
[2020-03-30] MEDS: SOTALOL HCL 80 MG TABLET (FP) PO SCH ×2 (10:41→21:20)
[2020-03-30] MEDS: LOSARTAN POTASSIUM 50 MG TABLET PO SCH (10:41)
[2020-03-30] MEDS: APIXABAN 5 MG TABLET PO SCH ×2 (10:42→21:19)
[2020-03-30] MEDS: SELEGILINE HCL 5 MG CAPSULE PO SCH ×2 (10:43→21:20)
[2020-03-30] MEDS: prednisoLONE ACETATE 1% OPHTH SUSP 5 ML BOTTLE OU SCH (10:43)
[2020-03-30 19:42] LABS: EPI CELLS 4 /uL (0-25.1); HYALINE CASTS 1 /uL (0-3.1); PH,URINE 5.5 (5.0-8.0); URINE APPEARANCE CLOUDY; URINE BILIRUBIN NEGATIVE (NEGATIVE); URINE COLOR ORANGE; URINE GLUCOSE (UA) NEGATIVE (NEGATIVE); URINE KETONE NEGATIVE (NEGATIVE); URINE LEUK ESTERASE TRACE (NEGATIVE); URINE NITRITE POSITIVE (NEGATIVE); URINE PROTEIN 1+ (NEGATIVE); URINE RBC 17983 /uL (0-23.9); URINE WBC 74 /uL (0-25.8)
[2020-03-30] MEDS: DOCUSATE SODIUM 100 MG CAPSULE (FP) PO SCH (21:19)
[2020-03-30] MEDS: DIVALPROEX SODIUM 500 MG TABLET E.C. PO SCH (21:20)
[2020-03-31 00:05] LABS: URINE BACTERIA 21 /uL (0-1359)
[2020-03-31] MEDS ORDERED: DEXTROSE 5%-WATER - 50 ML IVPB ONE ×3 (01:23→18:11)
[2020-03-31] MEDS ORDERED: PIPERACILLIN/TAZOBACTAM 2.25 GM VIAL IVPB ONE ×3 (01:23→18:10)
[2020-03-31] MEDS: PIPERACILLIN/TAZOB 2.25 GM 2.25 GM in DEXTROSE 5%-WATER - 50 ML IVPB SCH ×3 (01:30→18:31)
[2020-03-31] MEDS: OXYBUTYNIN CHLORIDE 5 MG TABLET PO SCH ×3 (06:31→21:42)
[2020-03-31 08:47] LABS: BASO % 0.2 % (0-2.0); EOS % 1.8 % (0-4.5); HEMATOCRIT 27.4 % (35.4-49); HEMOGLOBIN 9.3 GM/dL (11.7-16.9); LYMPH % 9.9 % (8-40); MCH 30.5 pg (25.7-33.7); MCHC 34.1 g/dl (32.0-35.9); MEAN CELL VOLUME 89.4 fl (80-96); MEAN PLT VOLUME 5.9 fl (7.5-11.1); MONO % 11.4 % (3.8-10.2); NEUT % 76.7 % (42.8-82.8); PLATELET COUNT 246 K/MM3 (134-434); RBC 3.06 M/mm3 (4.00-5.60); RDW 16.8 % (11.9-15.9); WHITE BLOOD COUNT 7.8 K/mm3 (4.0-10.0)
[2020-03-31 09:09] LABS: POTASSIUM 3.7 mmol/L (3.5-5.1)
[2020-03-31] MEDS ORDERED: PT OWN MED DRAWER 7, Y5N ONE ×2 (09:10→21:38)
[2020-03-31 09:11] LABS: CALCIUM 7.6 mg/dL (8.5-10.1)
[2020-03-31 09:12] LABS: ALBUMIN 2.3 g/dl (3.4-5.0); BLOOD UREA NITROGEN 16.3 mg/dL (7-18)
[2020-03-31 09:17] LABS: TOT PROT 4.8 g/dl (6.4-8.2)
[2020-03-31] MEDS: TAMSULOSIN HCL 0.4 MG CAP PO SCH (09:32)
[2020-03-31] MEDS: LOSARTAN POTASSIUM 50 MG TABLET PO SCH (09:32)
[2020-03-31] MEDS: IRON POLYSACCHARIDES 150 MG CAPSULE PO SCH (09:32)
[2020-03-31] MEDS: APIXABAN 5 MG TABLET PO SCH (09:33)
[2020-03-31] MEDS: SOTALOL HCL 80 MG TABLET (FP) PO SCH ×2 (09:33→21:41)
[2020-03-31] MEDS: SELEGILINE HCL 5 MG CAPSULE PO SCH ×2 (09:34→21:42)
[2020-03-31] MEDS: PHENAZOPYRIDINE HCL 100 MG TABLET (FP) PO SCH ×2 (09:34→21:42)
[2020-03-31] MEDS: prednisoLONE ACETATE 1% OPHTH SUSP 5 ML BOTTLE OU SCH (09:36)
[2020-03-31 10:03] LABS: ANISOCYTOSIS 1+; MACROCYTOSIS 0; PLATELET ESTIMATE NORMAL
[2020-03-31] MEDS: DOCUSATE SODIUM 100 MG CAPSULE (FP) PO SCH (21:41)
[2020-03-31] MEDS: DIVALPROEX SODIUM 500 MG TABLET E.C. PO SCH (21:41)
[2020-04-01] MEDS ORDERED: PIPERACILLIN/TAZOBACTAM 2.25 GM VIAL IVPB ONE ×3 (01:53→15:53)
[2020-04-01] MEDS ORDERED: DEXTROSE 5%-WATER - 50 ML IVPB ONE ×3 (01:54→15:53)
[2020-04-01] MEDS: PIPERACILLIN/TAZOB 2.25 GM 2.25 GM in DEXTROSE 5%-WATER - 50 ML IVPB SCH ×3 (02:07→17:03)
[2020-04-01] MEDS ORDERED: PT OWN MED DRAWER 7, Y5N ONE ×4 (06:05→20:46)
[2020-04-01] MEDS: OXYBUTYNIN CHLORIDE 5 MG TABLET PO SCH ×3 (06:12→21:04)
[2020-04-01 09:08] LABS: BASO % 0.4 % (0-2.0); EOS % 2.2 % (0-4.5); HEMATOCRIT 21.1 % (35.4-49); HEMOGLOBIN 7.2 GM/dL (11.7-16.9); LYMPH % 13.2 % (8-40); MCH 30.3 pg (25.7-33.7); MCHC 33.9 g/dl (32.0-35.9); MEAN CELL VOLUME 89.2 fl (80-96); MONO % 11.3 % (3.8-10.2); NEUT % 72.9 % (42.8-82.8); PLATELET COUNT 234 K/MM3 (134-434); RBC 2.37 M/mm3 (4.00-5.60); RDW 16.4 % (11.9-15.9); WHITE BLOOD COUNT 6.1 K/mm3 (4.0-10.0)
[2020-04-01] MEDS: SOTALOL HCL 80 MG TABLET (FP) PO SCH ×2 (09:22→21:04)
[2020-04-01] MEDS: IRON POLYSACCHARIDES 150 MG CAPSULE PO SCH (09:22)
[2020-04-01] MEDS: LOSARTAN POTASSIUM 50 MG TABLET PO SCH (09:22)
[2020-04-01] MEDS: prednisoLONE ACETATE 1% OPHTH SUSP 5 ML BOTTLE OU SCH (09:22)
[2020-04-01] MEDS: PHENAZOPYRIDINE HCL 100 MG TABLET (FP) PO SCH ×2 (09:22→21:05)
[2020-04-01] MEDS: TAMSULOSIN HCL 0.4 MG CAP PO SCH (09:22)
[2020-04-01 09:23] LABS: POTASSIUM 3.9 mmol/L (3.5-5.1)
[2020-04-01 09:25] LABS: CALCIUM 7.1 mg/dL (8.5-10.1)
[2020-04-01 09:26] LABS: BLOOD UREA NITROGEN 13.4 mg/dL (7-18)
[2020-04-01 09:29] LABS: CREATININE 0.9 mg/dL (0.55-1.3)
[2020-04-01] MEDS: SELEGILINE HCL 5 MG CAPSULE PO SCH ×2 (09:29→21:05)
[2020-04-01 09:30] LABS: BILIRUBIN,TOTAL 0.4 mg/dL (0.2-1)
[2020-04-01 11:31] LABS: ANISOCYTOSIS 1+; MACROCYTOSIS 0; PLATELET ESTIMATE NORMAL; TOXIC GRANULATION 1+
[2020-04-01] MEDS ORDERED: FUROSEMIDE 40 MG/4 ML INJECTABLE VIAL IVPUSH ONE (17:40)
[2020-04-01] MEDS: DIVALPROEX SODIUM 500 MG TABLET E.C. PO SCH (21:04)
[2020-04-01] MEDS: DOCUSATE SODIUM 100 MG CAPSULE (FP) PO SCH (21:04)
[2020-04-02] MEDS ORDERED: DEXTROSE 5%-WATER - 50 ML IVPB ONE ×2 (01:00→08:59)
[2020-04-02] MEDS ORDERED: PIPERACILLIN/TAZOBACTAM 2.25 GM VIAL IVPB ONE ×2 (01:00→08:59)
[2020-04-02] MEDS: PIPERACILLIN/TAZOB 2.25 GM 2.25 GM in DEXTROSE 5%-WATER - 50 ML IVPB SCH ×2 (01:05→09:22)
[2020-04-02] MEDS: OXYBUTYNIN CHLORIDE 5 MG TABLET PO SCH ×3 (06:17→22:19)
[2020-04-02] MEDS ORDERED: PT OWN MED DRAWER 7, Y5N ONE ×3 (08:59→21:42)
[2020-04-02 09:13] LABS: BASO % 0.5 % (0-2.0); EOS % 1.9 % (0-4.5); HEMATOCRIT 23.6 % (35.4-49); HEMOGLOBIN 8.1 GM/dL (11.7-16.9); LYMPH % 12.2 % (8-40); MCH 29.7 pg (25.7-33.7); MCHC 34.3 g/dl (32.0-35.9); MEAN CELL VOLUME 86.5 fl (80-96); MEAN PLT VOLUME 5.9 fl (7.5-11.1); MONO % 10.1 % (3.8-10.2); NEUT % 75.3 % (42.8-82.8); PLATELET COUNT 258 K/MM3 (134-434); RBC 2.73 M/mm3 (4.00-5.60); RDW 18.6 % (11.9-15.9); WHITE BLOOD COUNT 7.4 K/mm3 (4.0-10.0)
[2020-04-02] MEDS: LOSARTAN POTASSIUM 50 MG TABLET PO SCH (09:22)
[2020-04-02] MEDS: IRON POLYSACCHARIDES 150 MG CAPSULE PO SCH (09:22)
[2020-04-02] MEDS: TAMSULOSIN HCL 0.4 MG CAP PO SCH (09:22)
[2020-04-02] MEDS: SELEGILINE HCL 5 MG CAPSULE PO SCH ×2 (09:23→22:19)
[2020-04-02] MEDS: prednisoLONE ACETATE 1% OPHTH SUSP 5 ML BOTTLE OU SCH (09:23)
[2020-04-02 09:24] LABS: POTASSIUM 4.1 mmol/L (3.5-5.1)
[2020-04-02] MEDS: SOTALOL HCL 80 MG TABLET (FP) PO SCH ×2 (09:24→22:18)
[2020-04-02] MEDS: PHENAZOPYRIDINE HCL 100 MG TABLET (FP) PO SCH ×2 (09:24→22:18)
[2020-04-02 09:26] LABS: ALBUMIN 2.2 g/dl (3.4-5.0); BLOOD UREA NITROGEN 12.7 mg/dL (7-18); MAGNESIUM 1.6 mg/dL (1.8-2.4)
[2020-04-02 09:29] LABS: CREATININE 0.9 mg/dL (0.55-1.3)
[2020-04-02 09:31] LABS: BILIRUBIN,TOTAL 0.5 mg/dL (0.2-1); TOT PROT 4.6 g/dl (6.4-8.2)
[2020-04-02 10:34] LABS: ANISOCYTOSIS 2+; MACROCYTOSIS 0; PLATELET ESTIMATE NORMAL
[2020-04-02] MEDS ORDERED: FUROSEMIDE 40 MG/4 ML INJECTABLE VIAL IVPUSH ONE ×2 (11:03→12:00)
[2020-04-02] MEDS: DOCUSATE SODIUM 100 MG CAPSULE (FP) PO SCH (22:18)
[2020-04-02] MEDS: DIVALPROEX SODIUM 500 MG TABLET E.C. PO SCH (22:19)
[2020-04-02 23:13] LABS: N-TERMINAL BNP 598.2 pg/ml (5-125)
[2020-04-03] MEDS: OXYBUTYNIN CHLORIDE 5 MG TABLET PO SCH ×3 (05:33→22:17)
[2020-04-03] MEDS ORDERED: PT OWN MED DRAWER 7, Y5N ONE ×3 (05:33→22:15)
[2020-04-03 09:01] LABS: BASO % 0.5 % (0-2.0); EOS % 1.3 % (0-4.5); HEMATOCRIT 24.9 % (35.4-49); HEMOGLOBIN 8.6 GM/dL (11.7-16.9); LYMPH % 13.6 % (8-40); MCH 29.7 pg (25.7-33.7); MCHC 34.5 g/dl (32.0-35.9); MEAN CELL VOLUME 86.1 fl (80-96); MONO % 9.7 % (3.8-10.2); NEUT % 74.9 % (42.8-82.8); PLATELET COUNT 309 K/MM3 (134-434); RBC 2.89 M/mm3 (4.00-5.60); RDW 18.4 % (11.9-15.9); WHITE BLOOD COUNT 7.8 K/mm3 (4.0-10.0)
[2020-04-03 09:22] LABS: POTASSIUM 4.1 mmol/L (3.5-5.1)
[2020-04-03 09:26] LABS: ALBUMIN 2.4 g/dl (3.4-5.0); BLOOD UREA NITROGEN 12.3 mg/dL (7-18); CALCIUM 8.1 mg/dL (8.5-10.1); MAGNESIUM 1.5 mg/dL (1.8-2.4)
[2020-04-03 09:29] LABS: CREATININE 0.9 mg/dL (0.55-1.3)
[2020-04-03 09:31] LABS: BILIRUBIN,TOTAL 0.7 mg/dL (0.2-1)
[2020-04-03] MEDS: IRON POLYSACCHARIDES 150 MG CAPSULE PO SCH (10:19)
[2020-04-03] MEDS: LOSARTAN POTASSIUM 50 MG TABLET PO SCH (10:19)
[2020-04-03] MEDS: TAMSULOSIN HCL 0.4 MG CAP PO SCH (10:19)
[2020-04-03] MEDS: SELEGILINE HCL 5 MG CAPSULE PO SCH ×2 (10:19→22:17)
[2020-04-03] MEDS: PHENAZOPYRIDINE HCL 100 MG TABLET (FP) PO SCH ×2 (10:19→22:17)
[2020-04-03] MEDS: SOTALOL HCL 80 MG TABLET (FP) PO SCH ×2 (10:20→22:17)
[2020-04-03] MEDS: prednisoLONE ACETATE 1% OPHTH SUSP 5 ML BOTTLE OU SCH (10:20)
[2020-04-03 12:30] LABS: ANISOCYTOSIS 0; MACROCYTOSIS 0; PLATELET ESTIMATE NORMAL
[2020-04-03] MEDS ORDERED: FUROSEMIDE 40 MG TABLET (FP) PO ONE (12:35)
[2020-04-03] MEDS ORDERED: MAGNESIUM 2GM/50ML STERILE WATER IVPB IVPB ONE (13:00)
[2020-04-03] MEDS: DOCUSATE SODIUM 100 MG CAPSULE (FP) PO SCH (22:16)
[2020-04-03] MEDS: DIVALPROEX SODIUM 500 MG TABLET E.C. PO SCH (22:17)
[2020-04-04] MEDS ORDERED: PT OWN MED DRAWER 7, Y5N ONE ×5 (05:24→21:45)
[2020-04-04] MEDS: OXYBUTYNIN CHLORIDE 5 MG TABLET PO SCH ×3 (06:01→21:37)
[2020-04-04 08:57] LABS: BASO % 0.4 % (0-2.0); EOS % 1.9 % (0-4.5); HEMOGLOBIN 7.9 GM/dL (11.7-16.9); LYMPH % 15.8 % (8-40); MCH 29.4 pg (25.7-33.7); MCHC 34.2 g/dl (32.0-35.9); MEAN CELL VOLUME 86.1 fl (80-96); MONO % 13.7 % (3.8-10.2); NEUT % 68.2 % (42.8-82.8); PLATELET COUNT 308 K/MM3 (134-434); RBC 2.67 M/mm3 (4.00-5.60); RDW 17.9 % (11.9-15.9); WHITE BLOOD COUNT 6.9 K/mm3 (4.0-10.0)
[2020-04-04 09:35] LABS: ALBUMIN 2.2 g/dl (3.4-5.0); BLOOD UREA NITROGEN 10.8 mg/dL (7-18); CALCIUM 7.7 mg/dL (8.5-10.1); MAGNESIUM 2.1 mg/dL (1.8-2.4)
[2020-04-04 09:38] LABS: PHOSPHOROUS 3.1 mg/dL (2.5-4.9)
[2020-04-04 09:40] LABS: BILIRUBIN,TOTAL 0.4 mg/dL (0.2-1); TOT PROT 4.6 g/dl (6.4-8.2)
[2020-04-04] MEDS: SELEGILINE HCL 5 MG CAPSULE PO SCH ×2 (10:35→21:37)
[2020-04-04] MEDS: LOSARTAN POTASSIUM 50 MG TABLET PO SCH (10:46)
[2020-04-04] MEDS: TAMSULOSIN HCL 0.4 MG CAP PO SCH (10:46)
[2020-04-04] MEDS: SOTALOL HCL 80 MG TABLET (FP) PO SCH ×2 (10:46→21:37)
[2020-04-04] MEDS: IRON POLYSACCHARIDES 150 MG CAPSULE PO SCH (10:46)
[2020-04-04] MEDS: PHENAZOPYRIDINE HCL 100 MG TABLET (FP) PO SCH ×2 (10:46→22:41)
[2020-04-04] MEDS: prednisoLONE ACETATE 1% OPHTH SUSP 5 ML BOTTLE OU SCH (10:47)
[2020-04-04 11:20] LABS: ANISOCYTOSIS 1+; MACROCYTOSIS 0; OVALOCYTE 1+; PLATELET ESTIMATE NORMAL; ROULEAU 0; TARGET CELLS 1+; TEAR DROP CELLS 1+; TOXIC GRANULATION 2+
[2020-04-04] MEDS: FUROSEMIDE 40 MG TABLET (FP) PO SCH (14:32)
[2020-04-04] MEDS: DOCUSATE SODIUM 100 MG CAPSULE (FP) PO SCH (21:36)
[2020-04-04] MEDS: DIVALPROEX SODIUM 500 MG TABLET E.C. PO SCH (21:37)
[2020-04-04 21:58] LABS: HEMATOCRIT 25.8 % (35.4-49); HEMOGLOBIN 8.9 GM/dL (11.7-16.9); MCH 29.8 pg (25.7-33.7); MCHC 34.6 g/dl (32.0-35.9); MEAN CELL VOLUME 86.1 fl (80-96); MEAN PLT VOLUME 6.1 fl (7.5-11.1); PLATELET COUNT 302 K/MM3 (134-434); RBC 2.99 M/mm3 (4.00-5.60); RDW 17.3 % (11.9-15.9); WHITE BLOOD COUNT 9.2 K/mm3 (4.0-10.0)
[2020-04-05] MEDS: OXYBUTYNIN CHLORIDE 5 MG TABLET PO SCH ×2 (05:27→13:55)
[2020-04-05 07:15] VITALS: BP 130/64; PULSE 63; TEMP 98.6
[2020-04-05 09:51] LABS: BASO % 0.3 % (0-2.0); EOS % 1.8 % (0-4.5); HEMATOCRIT 28.9 % (35.4-49); HEMOGLOBIN 9.8 GM/dL (11.7-16.9); LYMPH % 11.6 % (8-40); MCH 29.3 pg (25.7-33.7); MCHC 33.8 g/dl (32.0-35.9); MEAN CELL VOLUME 86.8 fl (80-96); MEAN PLT VOLUME 6.1 fl (7.5-11.1); MONO % 9.7 % (3.8-10.2); NEUT % 76.6 % (42.8-82.8); PLATELET COUNT 346 K/MM3 (134-434); RBC 3.33 M/mm3 (4.00-5.60); RDW 17.4 % (11.9-15.9); WHITE BLOOD COUNT 8.3 K/mm3 (4.0-10.0)
[2020-04-05] MEDS ORDERED: IRON SUCROSE INJECTION 200 MG in SODIUM CHLORIDE 90 ML IVPB ONE (10:00)
[2020-04-05 10:05] LABS: POTASSIUM 4.1 mmol/L (3.5-5.1)
[2020-04-05 10:14] LABS: ALBUMIN 2.6 g/dl (3.4-5.0); BLOOD UREA NITROGEN 13.1 mg/dL (7-18); CALCIUM 8.5 mg/dL (8.5-10.1)
[2020-04-05 10:15] LABS: MAGNESIUM 1.8 mg/dL (1.8-2.4)
[2020-04-05 10:16] LABS: BILIRUBIN,TOTAL 0.6 mg/dL (0.2-1)
[2020-04-05 10:17] LABS: CREATININE 1.1 mg/dL (0.55-1.3); PHOSPHOROUS 3.1 mg/dL (2.5-4.9); TOT PROT 5.4 g/dl (6.4-8.2)
[2020-04-05] MEDS ORDERED: FUROSEMIDE 40 MG/4 ML INJECTABLE VIAL IVPUSH ONE (10:30)
[2020-04-05] MEDS ORDERED: PT OWN MED DRAWER 7, Y5N ONE ×2 (10:49→13:01)
[2020-04-05] MEDS: PHENAZOPYRIDINE HCL 100 MG TABLET (FP) PO SCH (11:03)
[2020-04-05] MEDS: IRON POLYSACCHARIDES 150 MG CAPSULE PO SCH (11:03)
[2020-04-05] MEDS: LOSARTAN POTASSIUM 50 MG TABLET PO SCH (11:03)
[2020-04-05] MEDS: TAMSULOSIN HCL 0.4 MG CAP PO SCH (11:03)
[2020-04-05] MEDS: FUROSEMIDE 40 MG TABLET (FP) PO SCH (11:03)
[2020-04-05] MEDS: SOTALOL HCL 80 MG TABLET (FP) PO SCH (11:03)
[2020-04-05] MEDS: SELEGILINE HCL 5 MG CAPSULE PO SCH (11:04)
[2020-04-05] MEDS: prednisoLONE ACETATE 1% OPHTH SUSP 5 ML BOTTLE OU SCH (11:04)
[2020-04-05 11:06] LABS: ANISOCYTOSIS 1+; MACROCYTOSIS 1+; PLATELET ESTIMATE NORMAL
[2020-04-06] MEDS ORDERED: FUROSEMIDE 40 MG TABLET (FP) PO SCH (10:00)
== END 2020-04-05 17:32 | disposition home health service (06) | DRG 987 ==
LOC: JASUSAT 05:43 → JASU-SURG 05:43 → JASUSAT 18:43 → J6S 18:43
PROVIDERS: ADMIT Urology; ATTEND Internal Medicine
PROC: 0VB08ZZ Excision of Prostate, Via Natural or Artificial Opening Endoscopic (ICD-10-PCS; principal; 2020-03-22 12:00)
PROC: 0V508ZZ Destruction of Prostate, Via Natural or Artificial Opening Endoscopic (ICD-10-PCS; 2020-03-22 12:00)
PROC: 30233N1 Transfusion of Nonautologous Red Blood Cells into Peripheral Vein, Percutaneous Approach (ICD-10-PCS; 2020-03-28)
PROC: 0V508ZZ Destruction of Prostate, Via Natural or Artificial Opening Endoscopic (ICD-10-PCS; 2020-03-29)
PROC: 0TCB8ZZ Extirpation of Matter from Bladder, Via Natural or Artificial Opening Endoscopic (ICD-10-PCS; 2020-03-29)
DX: N99.820 Postprocedural hemorrhage of a genitourinary system organ or structure following a genitourinary system procedure (principal); I50.33 Acute on chronic diastolic (congestive) heart failure; U07.1 COVID-19; T81.40XA Infection following a procedure, unspecified, initial encounter; N13.8 Other obstructive and reflux uropathy; N39.0 Urinary tract infection, site not specified; D62 Acute posthemorrhagic anemia; I48.19 Other persistent atrial fibrillation; N17.9 Acute kidney failure, unspecified; T81.44XA Sepsis following a procedure, initial encounter; N40.0 Benign prostatic hyperplasia without lower urinary tract symptoms; Y83.9 Surgical procedure, unspecified as the cause of abnormal reaction of the patient, or of later complication, without mention of misadventure at the time of the procedure; N99.0 Postprocedural (acute) (chronic) kidney failure; E78.5 Hyperlipidemia, unspecified; K57.90 Diverticulosis of intestine, part unspecified, without perforation or abscess without bleeding; R33.8 Other retention of urine; I11.0 Hypertensive heart disease with heart failure; R31.0 Gross hematuria; D50.9 Iron deficiency anemia, unspecified; Z95.5 Presence of coronary angioplasty implant and graft; I25.119 Atherosclerotic heart disease of native coronary artery with unspecified angina pectoris; D72.829 Elevated white blood cell count, unspecified
CPT/HCPCS: 36415; 36430; 71045-TC-FY; 71046-TC-FY; 76775-TC; 80048; 80053; 80061; 81003; 82728; 83540; 83550; 83721; 83735; 83880; 84100; 84443; 85025; 85027; 86850; 86900; 86901; 86922; 87040; 87086; 87804; 88304-TC; 88305-TC; 93306-TC; 94010; 94660; 94760; 97116-GP; C9803; J0131; J1756; P9058; U0003

== ENCOUNTER 2022-09-04 04:27 | Day surgery (SDC) | payer OTHER, BC ==
[2022-09-02 15:10] VITALS: BMI 29.9
[2022-09-04 09:23] VITALS: BP 129/52; PULSE 71; RESP 14; TEMP 97
== END 2022-09-04 09:24 | disposition home or self-care (01) ==
LOC: JASU-ENDO 04:27
PROVIDERS: ATTEND Internal Medicine Gastroenterology
PROC: 0DJD8ZZ Inspection of Lower Intestinal Tract, Via Natural or Artificial Opening Endoscopic (ICD-10-PCS; principal; 2022-09-04 08:00)
DX: Z12.11 Encounter for screening for malignant neoplasm of colon (principal); K57.30 Diverticulosis of large intestine without perforation or abscess without bleeding; Z86.010 Personal history of colon polyps

== ENCOUNTER 2023-04-09 04:04 | Day surgery (SDC) | payer OTHER, BC ==
[2023-04-04 13:44] VITALS: BMI 29.2
[2023-04-09 08:27] VITALS: TEMP 97.1
[2023-04-09 09:47] VITALS: BP 134/88; PULSE 80; RESP 16
== END 2023-04-09 09:15 | disposition home or self-care (01) ==
LOC: JASU-ENDO 04:04
PROVIDERS: ATTEND Internal Medicine Gastroenterology
PROC: 0DB78ZX Excision of Stomach, Pylorus, Via Natural or Artificial Opening Endoscopic, Diagnostic (ICD-10-PCS; 2023-04-09)
PROC: 0DB68ZX Excision of Stomach, Via Natural or Artificial Opening Endoscopic, Diagnostic (ICD-10-PCS; 2023-04-09)
PROC: 0DB98ZX Excision of Duodenum, Via Natural or Artificial Opening Endoscopic, Diagnostic (ICD-10-PCS; principal; 2023-04-09 08:00)
DX: K44.9 Diaphragmatic hernia without obstruction or gangrene (principal); K29.50 Unspecified chronic gastritis without bleeding; D50.9 Iron deficiency anemia, unspecified
CPT/HCPCS: 88305-TC; 88342-TC